=== PATIENT | male | born 1985 | race Caucasian/White ===

== ENCOUNTER 2017-11-16 18:54 | Emergency (ER) | payer OTHER ==
[~2017-11-16] VITALS: Ht 175.3 cm; Wt 68.2 kg
[~2017-11-16 18:54] MED LIST: LIBRIUM25 MG PO; NORVASC5 MG PO; THIAMINE HCL100 MG PO
[2017-11-16 20:57] VITALS: BP 142/98
== END 2017-11-16 20:58 | disposition home or self-care (01) ==
LOC: EME 18:54
DX: S01.81XA Laceration without foreign body of other part of head, initial encounter (principal); W22.8XXA Striking against or struck by other objects, initial encounter; Z23 Encounter for immunization
CPT/HCPCS: 99281; 99283